=== PATIENT | female | born 1940 | race African-American/Black ===

== ENCOUNTER 2016-06-25 17:24 | Inpatient (IN) | payer OTHER ==
[~2016-06-25] VITALS: Ht 160 cm; Wt 74.0 kg
--- NOTE | ~2016-06-25 | EKG ---
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: richar : 1940 Requested By: Anabelle Holden Order Number: [id number] MD: Ed Foley Measurements Intervals [place] Rate: 58 P: 59 CO: 191 QRS: -46 QRSD: 126 T: 71 QT: 444 QTc: 437 Interpretive Statements Sinus rhythm Nonspecific IVCD with LAD Left ventricular hypertrophy with QRS widening Poor R wave progression Baseline wander in lead(s) V1 No previous ECG available for comparison Electronically Signed On 06-26-2016 8:05:41 CDT by Ed Foley [email or web address] <ELECTRONICALLY SIGNED> By: Ed Foley MD, [facility] 06/26/16 0805 1744 1744 Ed Foley MD, [facility] /EPI
--- NOTE | ~2016-06-25 | HC ---
[facility] [place] [address] CONSULTATION Name: ARIES MUELLER Room #: 430-P ADM IN M.R.#: [id number] Admission: 06/25/16 Attend Phys: Juan Carlos Bell MD Discharge: Date of : 44 Report #: [id number] THIS REPORT FOR: //name// CC: Matoe Muñoz REASON FOR CONSULTATION: End-stage renal disease. REASON FOR PRESENTATION: Sent for clotted fistula. HISTORY OF PRESENT ILLNESS: The patient was seen and examined, evaluated last night. She is a 75-year-old with past medical history of end-stage renal disease, followed by [facility]. She goes to dialysis every Wednesday, Wednesday and Wednesday. She has very advanced dementia, not able to provide me with history. I talked with her daughter Cassia and she was the source of the information. She stays at the [facility]. Apparently, the patient had a clotted access. The daughter does not really recall how long this has been clotted; however, she reported that she has missed at least 2 treatments this week. The patient was sent to [facility]. Because of her mental status, she was deemed not suitable for any intervention and was sent back to the [facility]. The nursing facility discussed the case with her primary care physician and the primary care physician opted to send her to [facility]. She was found to be in need for an emergent dialysis and this was arranged with my dialysis nurses yesterday due to hyperkalemia and high BUN. PAST MEDICAL HISTORY: 1. End-stage renal disease, maintained on dialysis every Wednesday, Wednesday and Wednesday. 2. Hypertension. 3. Diabetes mellitus. 4. Thyroid cancer, status post thyroidectomy. 5. Status post right AV graft. 6. Status post total knee replacement. REPORTED HOME MEDICATIONS: 1. Lantus. 2. Aspirin. 3. Levothyroxine. 4. Potassium. 5. Cholecalciferol. 6. Tramadol. ALLERGIES: No known drug allergies. SOCIAL HISTORY: The patient resides in a nursing facility. She has advanced dementia. No drug or alcohol abuse. [address] [address] CONSULTATION Name: ARIES MUELLER Room #: 430-P [facility] IN ..#: [id number] Admission: 06/25/16 Attend Phys: Juan Carlos Bell MD Discharge: Date of : 44 Report #: [id number] REVIEW OF SYSTEMS: The patient is not able to provide me with review of systems due to the mental status. FAMILY HISTORY: Significant for hypertension and diabetes mellitus per the daughter. PHYSICAL EXAMINATION: GENERAL: She is alert, oriented, in no apparent distress. VITAL SIGNS: Blood pressure is elevated at 181/58. HEAD AND NECK: No jugular venous distention. Right IJ temporary catheter. CHEST: Decreased air entry bilaterally with no rub. CARDIOVASCULAR: Regular with no rub detected. ABDOMEN: Soft, nontender with no hepatosplenomegaly. LOWER EXTREMITIES: Bilateral scars over the knees with some old skin changes. UPPER EXTREMITIES: Right AV graft. LABORATORY VALUES: Reviewed. Potassium 7.4 from the last night. Pending this morning. IMAGING: Reviewed. 1. Chest x-ray clear. 2. Head CT unremarkable. ASSESSMENT, IMPRESSION, PLAN: 1. Life threatening hyperkalemia. 2. End-stage renal disease. 3. Clotted arteriovenous access. 4. Dementia. 5. Dialysis was done yesterday. We will arrange for another dialysis treatment today, discuss the case with the ER staff and with Dr. Bonner. Temporary dialysis catheter was placed for declot of her AV graft today. 6. Another dialysis treatment will be arranged today. She is stable to be discharged after her dialysis today back to her nursing facility. <ELECTRONICALLY SIGNED> By: Mateo Reese MD 06/27/16 1425 0641 0727 Mateo Reese MD /nt
--- NOTE | ~2016-06-25 | H ---
[facility] [place] [address] HISTORY AND PHYSICAL Name: ARIES MUELLER Room #: 430-P [facility] IN M.R.#: [id number] Admission: 06/25/16 Attend Phys: Juan Carlos Bell MD Discharge: 06/28/16 Date of : 44 Report #: [id number] THIS REPORT FOR: //name// CC: Mateo Muñoz DATE OF ADMISSION: 06/25/2016 ATTENDING PHYSICIAN: Dr. Juan Carlos Bell. PRIMARY CARE PHYSICIAN: Cesar Muñoz DO CHIEF COMPLAINT: Clogged right arm fistula. HISTORY OF PRESENT ILLNESS: The patient is a 75-year-old who lived at [facility]. She is a dialysis patient. She normally receives dialysis Mondays, Wednesdays, and Fridays, but apparently she has not been able to have dialysis all this week because of clotted hemodialysis fistula on the right. She was initially taken to [facility] earlier in the morning and was supposedly combative and had refused treatment. Therefore, she was sent back to [facility] without anything being done. The staff contacted to Dr. Muñoz who wanted her to be evaluated in the ER. She did come in the ER combative and uncooperative and I did require the use of Geodon and was placed in restraint. She has already been taken to for temporary dialysis catheter placement and is currently receiving hemodialysis. I really have no records from her snf as far as her medications. I do not know her medication are accurate. The patient remains confused, and is a very poor historian, so very little information was obtained from her. She currently denies pain. PAST MEDICAL HISTORY: Hypothyroidism related to thyroid cancer, hypertension, diabetes, and dementia. PAST SURGICAL HISTORY: Thyroidectomy, , right knee replacement. ALLERGIES: None. HOME MEDICATIONS: I did not know if this is accurate of not, but her EMAR is showing she is on Zocor 40 mg at bedtime, aspirin 81 mg daily, tramadol 1 tab daily, potassium 20 mEq daily, Lantus insulin 20 units at bedtime, NovoLog sliding scale insulin, calcitriol 0.5 mcg daily, vitamin D3 2000 units daily, levothyroxine 150 mcg daily, Lotrel 1 tab capsule daily. SOCIAL HISTORY: The patient lives at [facility]. I do not know how long she has been there. This is otherwise unobtainable information due to altered mental status. [address] [address] HISTORY AND PHYSICAL Name: ARIES MUELLER Room #: 430-P [facility] IN [facility].#: [id number] Admission: 06/25/16 Attend Phys: Juan Carlos Bell MD Discharge: 06/28/16 Date of : 44 Report #: [id number] FAMILY HISTORY: Unobtainable due to altered mental status. REVIEW OF SYSTEMS: Unobtainable due to altered mental status. PHYSICAL EXAMINATION: GENERAL: The patient is an alert, but confused female in no acute distress. VITAL SIGNS: Temperature is 37.0, heart rate 60, respirations 15, blood pressure is 194/127, and oxygen is 98% on room air. HEENT: PERRLA. Her pupils are 2 mm. Oral mucosa is pink and moist. She does not have any teeth. NECK: Supple, no JVD noted. CARDIOVASCULAR: Normal S1, S2. No murmurs, rubs or gallops. RESPIRATORY: Breath sounds are clear bilateral upper lobes. She is diminished in both bases. Breathing is nonlabored. ABDOMEN: Round, soft, nontender, nondistended with positive bowel sounds. VASCULAR: 1+ bilateral lower extremity edema. Pedal pulses are 2+. Her right upper arm fistula has no bruit or thrill, her right radial pulse is 2+. NEUROLOGIC: The patient is alert to self only. She is unable to tell me the current month or year or where she is. She will follow some simple commands. Her speech is clear when she does decide to talk. There was no focal weakness noted. SKIN: Intact. No rashes or lesions. LABORATORY DATA AND DIAGNOSTICS: WBC is 7.0, hemoglobin 11.5, platelets 258. Sodium 134, potassium 7.4, BUN is 158, creatinine 15.3. LFTs are within normal limits, alkaline phosphatase is 144. Troponin is negative. EKG shows sinus rhythm with some left ventricular hypertrophy. CT of the head is unremarkable. There is diffuse moderate atrophy. There are moderate periventricular low density changes suggesting chronic encephalomalacia and chest x-ray shows no acute process. ASSESSMENT AND PLAN: 1. Uremia. This is due to missing hemodialysis due to a clogged fistula. Temporary hemodialysis catheter has been placed by and she is currently receiving hemodialysis. Renal was consulted. We still need to address further evaluation of her clotted fistula. We will keep her n.p.o. for that. 2. Hyperkalemia secondary to #1. This has been treated and she is currently receiving hemodialysis. We will follow labs. Check BNP now. 3. End-stage renal disease on hemodialysis see #1. 4. Hypothyroid. Continue Synthroid. 5. Hypertension. Blood pressure is improving with hemodialysis currently. We will try to clarify her home medications and continue. 6. Possible dementia. We really do not know her baseline. Her current confusion may be attributed to uremia and her CT of the head is negative. 7. Diabetes. Add sliding scale insulin and continue Levemir. Check blood [facility] [address] [place] [address] HISTORY AND PHYSICAL Name: ARIES MUELLER Room #: 430-P DIS IN M.R.#: [id number] Admission: 06/25/16 Attend Phys: Juan Carlos Bell MD Discharge: 06/28/16 Date of : 44 Report #: [id number] sugars a.c. and at bedtime. 8. Sequential compression device. We will continue to follow the patient closely throughout the hospitalization and make changes based on clinical status. <ELECTRONICALLY SIGNED> By: JAIRO Quinones 06/29/16 0604 0547 0733 JAIRO Quinones /nt
[~2016-06-25 17:24] MED LIST: ADULT LOW DOSE81 MG PO; CALCITRIOL0.5 MCG PO; KLOR-CON 1010 MEQ PO; LANTUS SQ; LEVOTHROID150 MC1 PO; LOTREL PO; NOVOLOG100 UNIT/1 SQ; TRAMADOL-ACETA1 EACH PO; VITAMIN D-32000 UNIT PO; ZOCOR40 MG PO
[2016-06-25 20:57] LABS: ABSOLUTE NEUTROPHILS 4.2 thou/uL (1.4-8.2); BASOPHILS 0.9 % (0.0-2.0); EOSINOPHILS 2.3 % (0.0-3.0); HEMATOCRIT 35.9 % (37.0-47.0); HEMOGLOBIN 11.5 gm/dL (12.0-15.0); MCH 28.3 pg (26.0-34.0); MCHC 32.2 g/dL (28.0-37.0); MCV 87.9 fL (80.0-100.0); MONOCYTES 11.8 % (1.0-8.0); PLATELET COUNT 258 thou/uL (150-400); RBC 4.08 mil/uL (4.20-5.00); RDW 17.5 % (10.5-14.5)
[2016-06-25 20:58] LABS: MANUAL DIFF NO
[2016-06-25 21:11] LABS: PROTIME 10.4 Seconds (9.3-11.4)
[2016-06-25 21:18] LABS: ALBUMIN 3.7 g/dL (3.4-5.0); ALKALINE PHOSPHATASE 144 U/L (46-116); ANION GAP 18 mmol/L (7-16); BUN 158 mg/dL (7-18); CALCIUM 9.2 mg/dL (8.5-10.1); CHLORIDE 98 mmol/L (98-107); CO2 18 mmol/L (21-32); CREATININE 15.3 mg/dL (0.6-1.0); GLUCOSE 125 mg/dL (74-106); SGOT 13 U/L (15-37); SGPT 13 U/L (30-65); SODIUM 134 mmol/L (136-145); TOTAL BILIRUBIN 0.3 mg/dL (<0.1-1.0); TOTAL PROTEIN 7.5 g/dL (6.4-8.2); TROPONIN-I < 0.04 ng/mL (<0.04-0.07)
[2016-06-25 21:20] LABS: POTASSIUM 7.4 mmol/L (3.5-5.1)
[2016-06-26] VITALS (30 sets, daily range): BP systolic 114–205; BP diastolic 39–84
[2016-06-26 07:06] LABS: CALCIUM 9.1 mg/dL (8.5-10.1)
[2016-06-26 07:07] LABS: CREATININE 6.2 mg/dL (0.6-1.0); POTASSIUM 5.1 mmol/L (3.5-5.1)
[2016-06-27 03:02] VITALS: BP 153/60
[2016-06-27 06:44] LABS: HEMATOCRIT 35.3 % (37.0-47.0); HEMOGLOBIN 11.5 gm/dL (12.0-15.0); MANUAL DIFF YES; MCH 28.4 pg (26.0-34.0); MCHC 32.5 g/dL (28.0-37.0); MCV 87.4 fL (80.0-100.0); PLATELET COUNT 256 thou/uL (150-400); RBC 4.04 mil/uL (4.20-5.00); RDW 17.3 % (10.5-14.5); WBC 7.8 thou/uL (4.0-11.0)
[2016-06-27 06:57] LABS: ALBUMIN 3.4 g/dL (3.4-5.0); CALCIUM 8.7 mg/dL (8.5-10.1); PHOSPHORUS 6.7 mg/dL (2.5-4.9)
[2016-06-27 07:02] LABS: POTASSIUM 6.1 mmol/L (3.5-5.1)
[2016-06-27 07:37] LABS: ABSOLUTE NEUTROPHILS 5.5 thou/uL (1.4-8.2); ANISOCYTOSIS 2+; TOTAL CELL COUNT 100
[2016-06-27 07:38] LABS: HYPOCHROMASIA 1+
[2016-06-27 08:27] VITALS: BP 137/46
[2016-06-27 16:45] VITALS: BP 161/66
[2016-06-27 20:30] VITALS: BP 186/62
[2016-06-28 08:30] VITALS: BP 164/48
== END 2016-06-28 15:30 | DRG 314 ==
LOC: ER 17:24 → ICU 22:29 → EROBS 22:29 → TBA 23:12 → ICU 06-26 00:11 → 4E 06-26 08:32
PROVIDERS: Emergency Medicine; Hospitalist; Internal Medicine Endocrinology, Diabetes & Metabolism; Nurse Practitioner Acute Care
PROC: 02HV33Z Insertion of Infusion Device into Superior Vena Cava, Percutaneous Approach (ICD-10-PCS; 2016-06-25)
PROC: B5181ZA Fluoroscopy of Superior Vena Cava using Low Osmolar Contrast, Guidance (ICD-10-PCS; 2016-06-25)
PROC: 5A1D60Z (ICD-10-PCS; 2016-06-26)
PROC: B51W1ZZ Fluoroscopy of Dialysis Shunt/Fistula using Low Osmolar Contrast (ICD-10-PCS; principal; 2016-06-27)
DX: T82.868A Thrombosis due to vascular prosthetic devices, implants and grafts, initial encounter (principal); N18.6 End stage renal disease; I12.0 Hypertensive chronic kidney disease with stage 5 chronic kidney disease or end stage renal disease; E87.2 Acidosis; N17.9 Acute kidney failure, unspecified; E89.0 Postprocedural hypothyroidism; E11.22 Type 2 diabetes mellitus with diabetic chronic kidney disease; E87.5 Hyperkalemia; Z96.651 Presence of right artificial knee joint; Z79.82 Long term (current) use of aspirin; Z85.850 Personal history of malignant neoplasm of thyroid; Z83.3 Family history of diabetes mellitus; Z82.49 Family history of ischemic heart disease and other diseases of the circulatory system; Z79.899 Other long term (current) drug therapy; Z99.2 Dependence on renal dialysis
CPT/HCPCS: 10783; 32100

== ENCOUNTER → 2016-08-21 | Outpatient (CLI) | payer OTHER ==
[~2016-08-21] VITALS: Ht 157.5 cm; Wt 68.0 kg
[~2016-08-21] MED LIST changes: +CLONIDINE0.1 PO; +COREG6.25 MG PO; +HYDRALAZINE 2525 MG PO; +MIRALAX17 GM PO; +NEPHROCAPS SOFT1 CAP PO; +NEPRO CARB STE237 ML PO; +NITROGLYCERIN0.4 MG SUBLING; +NORVASC10 MG PO; +ONDANSETRON HCL4 M2 IV PUSH; +PHENERGAN 25 MG25 M1 PO; +PHOSLO667 MG PO; +PRAVACHOL40 MG PO; +REGLAN 10 MG TA10 MG PO; +TRAZODONE HCL50 MG PO; +ZYPREXA2.5 MG PO
[2016-08-21 07:56] VITALS: BP 172/52
[2016-08-21 08:11] LABS: HEMATOCRIT 34.5 % (37.0-47.0); MCH 28.9 pg (26.0-34.0); MCV 90.2 fL (80.0-100.0); RBC 3.83 mil/uL (4.20-5.00); RDW 18.1 % (10.5-14.5); WBC 7.2 thou/uL (4.0-11.0)
[2016-08-21 08:21] LABS: CALCIUM 9.4 mg/dL (8.5-10.1); CREATININE 12.1 mg/dL (0.6-1.0)
[2016-08-21 08:35] LABS: APTT 24.3 Seconds (24.5-32.8); PROTIME 10.2 Seconds (9.3-11.4)
[2016-08-21 08:39] LABS: POTASSIUM 6.9 mmol/L (3.5-5.1)
== END ==
LOC: SPEC 07:21
PROVIDERS: Internal Medicine Nephrology
DX: T82.868A Thrombosis due to vascular prosthetic devices, implants and grafts, initial encounter (principal); I12.0 Hypertensive chronic kidney disease with stage 5 chronic kidney disease or end stage renal disease; N18.6 End stage renal disease; E11.9 Type 2 diabetes mellitus without complications; K21.9 Gastro-esophageal reflux disease without esophagitis; Z86.73 Personal history of transient ischemic attack (TIA), and cerebral infarction without residual deficits; Z79.4 Long term (current) use of insulin; Z85.850 Personal history of malignant neoplasm of thyroid; Z96.659 Presence of unspecified artificial knee joint; Z98.890 Other specified postprocedural states; Z79.82 Long term (current) use of aspirin; Z79.899 Other long term (current) drug therapy; Z99.2 Dependence on renal dialysis; Y83.8 Other surgical procedures as the cause of abnormal reaction of the patient, or of later complication, without mention of misadventure at the time of the procedure

== ENCOUNTER → 2016-11-03 | Outpatient (CLI) | payer OTHER ==
[2016-11-03 08:15] VITALS: BP 167/55
== END | disposition home or self-care (01) ==
LOC: SPEC 07:43
DX: T82.590A Other mechanical complication of surgically created arteriovenous fistula, initial encounter (principal); E11.22 Type 2 diabetes mellitus with diabetic chronic kidney disease; I12.0 Hypertensive chronic kidney disease with stage 5 chronic kidney disease or end stage renal disease; N18.6 End stage renal disease; K21.9 Gastro-esophageal reflux disease without esophagitis; F41.8 Other specified anxiety disorders; Z79.4 Long term (current) use of insulin; Z86.73 Personal history of transient ischemic attack (TIA), and cerebral infarction without residual deficits; Z85.850 Personal history of malignant neoplasm of thyroid; Z98.890 Other specified postprocedural states; Z99.2 Dependence on renal dialysis; Z79.82 Long term (current) use of aspirin; Z79.899 Other long term (current) drug therapy; Y83.8 Other surgical procedures as the cause of abnormal reaction of the patient, or of later complication, without mention of misadventure at the time of the procedure

== ENCOUNTER → 2017-02-05 | Outpatient (CLI) | payer OTHER ==
[~2017-02-05] VITALS: Ht 160 cm; Wt 81.6 kg
== END | disposition home or self-care (01) ==
LOC: CATH 13:56
DX: T82.398A Other mechanical complication of other vascular grafts, initial encounter (principal); I12.9 Hypertensive chronic kidney disease with stage 1 through stage 4 chronic kidney disease, or unspecified chronic kidney disease; E11.22 Type 2 diabetes mellitus with diabetic chronic kidney disease; N18.9 Chronic kidney disease, unspecified; K21.9 Gastro-esophageal reflux disease without esophagitis; G45.9 Transient cerebral ischemic attack, unspecified; Z83.3 Family history of diabetes mellitus

== ENCOUNTER 2018-06-29 14:02 | Emergency (ER) | payer OTHER ==
[~2018-06-29] VITALS: Ht 170.2 cm; Wt 84.0 kg
[2018-06-29 18:41] VITALS: BP 128/46
== END 2018-06-29 18:43 | disposition home or self-care (01) ==
LOC: ER 14:02
DX: T82.838A Hemorrhage due to vascular prosthetic devices, implants and grafts, initial encounter (principal); I12.0 Hypertensive chronic kidney disease with stage 5 chronic kidney disease or end stage renal disease; E11.22 Type 2 diabetes mellitus with diabetic chronic kidney disease; N18.6 End stage renal disease; Z99.2 Dependence on renal dialysis; Z85.850 Personal history of malignant neoplasm of thyroid; Z98.890 Other specified postprocedural states; Z96.653 Presence of artificial knee joint, bilateral; Z86.73 Personal history of transient ischemic attack (TIA), and cerebral infarction without residual deficits; Z79.4 Long term (current) use of insulin; Z79.899 Other long term (current) drug therapy; Y84.9 Medical procedure, unspecified as the cause of abnormal reaction of the patient, or of later complication, without mention of misadventure at the time of the procedure; Y92.89 Other specified places as the place of occurrence of the external cause